=== PATIENT | male | born 1985 | race Two or more races ===

== ENCOUNTER 2023-08-31 16:55 | Observation (INO) ==
--- NOTE | 2023-08-31 18:17 | DR.GENAD ---
HPI Time Seen Time Seen by Provider: 08/31/23 18:17 PCP Primary Care Physician: NONE Complaint/Symptoms Chief Complaint Doctors Comments: Patient c/o nausea,vomiting,epigasric pain x 7 days.Patient has a h/o pancreatitis in the past.Patient states that he had hematemesis and hematochezia occasionally also. Patient denies: fever,chills,back pain,dizziness,lightheadedness. Chief Complaint:: Patient c/o of nausea/vomiting/ epigastric pain that started friday denies any fever/diarrhea. patient last vomitted around 2pm. COVID-19 Coronavirus risk:travel/contact w/high risk person: No Has patient experienced Coronavirus symptoms: No Source History Provided: Patient Mode of Arrival Mode of Arrival: Ambulatory Timing Onset of Chief Complaint: 08/29/23 PMH PMH Past Medical History: Yes Past Medical History: Dyslipidemia Past Surgical History: No Family History History of Family Medical Conditions: No Social History Does patient currently use any type of tobacco product: No Have you used tobacco products in the last 12 months: No Type of Tobacco Use: None Does any household member use tobacco: No Alcohol Use: Occasionally Do you use any recreational Drugs:: No Lives With: Family Lives Where: Home Travel Risk Coronavirus risk:travel/contact w/high risk person: No Has patient experienced Coronavirus symptoms: No Infectious screening In the last 2 months have you had wt loss of >10#?: NO Have you had fever, night sweats or hemotysis?: No Have you traveled outside the country in the last 6 months?: No Isolation: Standard ROS Review of Systems Constitutional: No Symptoms Reported Eyes: No Symptoms Reported ENTM: No Symptoms Reported Respiratoy: No Symptoms Reported Cardiovascular: No Symptoms Reported Gastrointestinal/Abdominal: Abdominal Pain (epigastric,RUQ), Nausea, Vomiting and Food Intolerance Genitourinary: No Symptoms Reported Neurological: No Symptoms Reported Musculoskeletal: No Symptoms Reported Integumentary: No Symptoms Reported Hematologic/Lymphatic: No Symptoms Reported Endocrine: No Symptoms Reported Psychiatric: No Symptoms Reported All Other Systems: Reviewed and Negative PE Vital Signs Vitals: Vital Signs Pulse Rate [Left Brachial] 56 Pulse Rate 62 Respiratory Rate 20 Respiratory Rate 20 Respiratory Rate 20 Blood Pressure [Right Arm] 116/75 Blood Pressure 125/76 O2 Sat by Pulse Oximetry 96 O2 Sat by Pulse Oximetry 97 General Limitations: No Limitations General Appearance: Alert and In No Apparent Distress Head Head Exam: Normal Inspection Eyes Eye exam: Normal Appearance ENT ENT Exam: Normal Exam External Ear Exam: Normal External Inspection TM/Canal Exam: Bilateral: Normal Nose Exam: Normal Nose Exam Mouth Exam: Normal Inspection Throat Exam: Normal Inspection Neck Neck Exam: Normal Inspection Chest Chest Inspection: Normal Inspection Respiratory Respiratory Exam: Normal Lung Sounds Bilat Respiratory Exam: Bilateral: Clear to Auscultation Cardiovascular Cardiovascular Exam: Regular Rate and Normal Rhythm Abdominal Exam Abdominal Exam: Normal Inspection, Soft, Tenderness and Hypoactive Bowel Sounds Abdominal Tenderness: RUQ and Epigastrium Extremities Extremities Exam: Normal Inspection Back Back Exam: Normal Inspection Neurologic Neurological Exam: Alert and Oriented X3 Psychiatric Psychiatric Exam: Normal Affect and Normal Mood Skin Skin Exam: Warm, Dry, Intact and Normal Color MDM Differential Diagnosis Differential Diagnosis: DDx: gastritis,Gerd,PUD COURSE Treatment Treatment: Patient was given zofran 4mg im ,gi cocktail 30ml po.Patient had an episode of emesis and vomited the meds he was given. Iv access was initiated and patient was given: NS iv bolus was given,dicyclomine 10mg im,flagyl 500mg iv,morphine 2mg iv and zofran 4mg iv.Patient's abd/pelvis CT revealed acute pancreatitis. Discussed case with Dr Christianson who will admit patient to his service for further treatment. [facility] Labs Reviewed Laboratory Results Reviewed?: Yes 08/31/23 22:58 08/31/23 22:58 Laboratory: WBC 9.0 X10^3/uL (3.6-10.0) 08/31/23 22:58 RBC 5.29 X10^6/uL (4.7-6.0) 08/31/23 22:58 Hgb 15.7 g/dL (13.5-18.0) 08/31/23 22:58 Hct 45.2 % (42.0-54.0) 08/31/23 22:58 MCV 85.4 fL (80.0-100.0) 08/31/23 22:58 MCH 29.7 pg (27.0-34.0) 08/31/23 22:58 MCHC 34.8 g/dL (33.0-35.0) 08/31/23 22:58 RDW 14.2 % (11.6-16.5) 08/31/23 22:58 Plt Count 418 X10^3/uL (150.0-450.0) 08/31/23 22:58 MPV 7.2 fL (7.4-11.0) L 08/31/23 22:58 Neut % (Auto) 71.9 % (42.0-75.0) 08/31/23 22:58 Lymph % (Auto) 20.1 % (21.0-51.0) L 08/31/23 22:58 [place] % (Auto) 5.8 % (0.0-13.0) 08/31/23 22:58 Eos % (Auto) 1.6 % (0.9-2.9) 08/31/23 22:58 Baso % (Auto) 0.6 % (0.2-1.0) 08/31/23 22:58 Neut # (Auto) 6.4 x10^3/uL (2.2-4.8) H 08/31/23 22:58 Lymph # (Auto) 1.8 X10^3/uL (1.3-2.9) 08/31/23 22:58 [place] # (Auto) 0.5 x10^3/uL (0.3-0.8) 08/31/23 22:58 Eos # (Auto) 0.1 x10^3/uL (0.0-0.2) 08/31/23 22:58 Baso # (Auto) 0.1 X10^3/uL (0.0-0.1) 08/31/23 22:58 Absolute Nucleated RBC 0.2 /100WBC 08/31/23 22:58 Sodium 139 mmol/L (136-145) 08/31/23 22:58 Corrected Sodium 140 mmol/L (136-145) 08/31/23 22:58 Potassium 3.3 mmol/L (3.5-5.1) L 08/31/23 22:58 Chloride 97 mmol/L (98-107) L 08/31/23 22:58 Carbon Dioxide 33.5 mmol/L (21-32) H 08/31/23 22:58 BUN 22 mg/dL (7-18) H 08/31/23 22:58 Creatinine 1.15 mg/dL (0.70-1.30) 08/31/23 22:58 Est GFR (MDRD) Af Amer > 60 (>60) 08/31/23 22:58 Est GFR (MDRD) Non-Af > 60 (>60) 08/31/23 22:58 Glucose 142 mg/dL (65-99) H 08/31/23 22:58 Calcium 9.9 mg/dL (8.5-10.1) 08/31/23 22:58 Corrected Calcium TNP 08/31/23 22:58 Total Bilirubin 0.90 mg/dL (0.2-1.0) 08/31/23 22:58 AST 34 Units/L (15-37) 08/31/23 22:58 ALT 64 Units/L (12-78) 08/31/23 22:58 Alkaline Phosphatase 121 Units/L (46-116) H 08/31/23 22:58 Total Protein 9.8 g/dL (6.4-8.2) H 08/31/23 22:58 Albumin 4.6 g/dL (3.4-5.0) 08/31/23 22:58 Globulin 5.2 g/dL (2.5-4.5) H 08/31/23 22:58 Albumin/Globulin Ratio 0.9 Ratio (1.1-2.1) L 08/31/23 22:58 Amylase 72 Units/L (25-115) 08/31/23 22:58 Lipase 73 Units/L (16-77) 08/31/23 22:58 Specimen Type Clean catch urine 09/01/23 00:38 Urine Color Yellow (YELLOW) 09/01/23 00:38 Urine Appearance Clear (CLEAR) 09/01/23 00:38 Urine pH 8.0 (5.0 - 8.0) 09/01/23 00:38 Ur Specific [place] 1.015 (1.000-1.030) 09/01/23 00:38 Urine Protein Negative (NEGATIVE) 09/01/23 00:38 Urine Glucose (UA) Negative (NEGATIVE) 09/01/23 00:38 Urine Ketones Negative (NEGATIVE) 09/01/23 00:38 Urine Blood Negative (NEGATIVE) 09/01/23 00:38 Urine Nitrite Negative (NEGATIVE) 09/01/23 00:38 Urine Bilirubin Negative (NEGATIVE) 09/01/23 00:38 Urine Urobilinogen Normal (NORMAL) 09/01/23 00:38 Ur Leukocyte Esterase Negative (NEGATIVE) 09/01/23 00:38 Urine Opiates Screen Negative (NEG=<300) 09/01/23 00:38 Urine Methadone Screen Negative (NEG=<300) 09/01/23 00:38 Ur Barbiturates Screen Negative (NEG=<200) 09/01/23 00:38 Ur Phencyclidine Scrn Negative (NEG=<25) 09/01/23 00:38 Ur Amphetamines Screen Negative (NEG=<1000) 09/01/23 00:38 U Benzodiazepines Scrn Negative (NEG=<200) 09/01/23 00:38 Urine Cocaine Screen Negative (NEG=<300) 09/01/23 00:38 U Marijuana (THC) Screen Negative (NEG=<50) 09/01/23 00:38 Ethyl Alcohol mg/dL < 3 mg/dL (0-19.9) 08/31/23 22:58 Opioid Opioid Risk Tool Age (Raciel box if 16-45): Yes History of Preadolescent Sexual Abuse: No Total: 1 Total Score Risk Category: Low Risk Copyright: Huy LOU predicting aberrant behaviors Discharge Plan Diagnosis Discharge Problem: Acute pancreatitis Discharge Plan Patient Disposition: 09 ADMITTED INPATIENT Condition: Stable Prescriptions: New omeprazole 40 mg capsule,delayed release(DR/EC) 40 mg PO BID Qty: 40 0RF ondansetron HCl 4 mg tablet 4 mg PO Q6H Qty: 40 0RF sucralfate 1 gram tablet 1 g PO BID Qty: 60 0RF No Action atorvastatin 40 mg tablet 40 mg PO QPM Health Concerns: Post Hospitalization: new medications and changes needed to prevent readmission or further decline. Pt educated and given instructions on all concerns. Plan of Treatment: Continue with present treatment and follow up plan. Pt is to keep follow up appointment as instructed and take medications as ordered. Orders to Discharge Patient Discharge Orders: Discharge (Routine); Ordered 08/31/23 Ordered By: Gloria Gutierrez Transfer (Routine); Ordered 09/01/23 Ordered By: Gloria Gutierrez Follow ups/Referrals Follow ups/Referrals: NFD,None [Primary Care Provider] - 3 days Instructions Stand Alone Forms: Post Hospital Follow Up Care
[2023-08-31] MEDS: ZOFRAN INJ 4 MG VIAL IM ONE (21:35)
[2023-08-31] MEDS: LEVSIN/MAALOX/LIDOC VISC PO ONE (21:49)
[2023-08-31] MEDS: BENTYL I.M. INJ 10 MG IM ONE (22:38)
[2023-08-31] MEDS: NS 1,000 ML IV 1,000 ML IV ONE (23:02)
[2023-08-31] MEDS: ZOFRAN INJ 4 MG VIAL IVP ONE (23:02)
[2023-08-31 23:06] LABS: BASOPHILS # (AUTO) 0.1 X10^3/uL (0.0-0.1); BASOPHILS % (AUTO) 0.6 % (0.2-1.0); EOSINOPHILS # (AUTO) 0.1 x10^3/uL (0.0-0.2); EOSINOPHILS % (AUTO) 1.6 % (0.9-2.9); HEMATOCRIT 45.2 % (42.0-54.0); HEMOGLOBIN 15.7 g/dL (13.5-18.0); LYMPHOCYTES # (AUTO) 1.8 X10^3/uL (1.3-2.9); LYMPHOCYTES % (AUTO) 20.1 % (21.0-51.0); MEAN CORPUSCULAR HEMOGLOBIN 29.7 pg (27.0-34.0); MEAN CORPUSCULAR HGB CONC 34.8 g/dL (33.0-35.0); MEAN CORPUSCULAR VOLUME 85.4 fL (80.0-100.0); MEAN PLATELET VOLUME 7.2 fL (7.4-11.0); MONOCYTES # (AUTO) 0.5 x10^3/uL (0.3-0.8); MONOCYTES % (AUTO) 5.8 % (0.0-13.0); NEUTROPHILS # (AUTO) 6.4 x10^3/uL (2.2-4.8); NEUTROPHILS % (AUTO) 71.9 % (42.0-75.0); PLATELET COUNT 418 X10^3/uL (150.0-450.0); RED BLOOD COUNT 5.29 X10^6/uL (4.7-6.0); RED CELL DISTRIBUTION WIDTH 14.2 % (11.6-16.5)
[2023-08-31 23:21] LABS: ALANINE AMINOTRANSFERASE 64 Units/L (12-78); ALBUMIN 4.6 g/dL (3.4-5.0); ALKALINE PHOSPHATASE 121 Units/L (46-116); AMYLASE 72 Units/L (25-115); ASPARTATE AMINO TRANSFERASE 34 Units/L (15-37); BLOOD ALCOHOL < 3 mg/dL (0-19.9); BLOOD UREA NITROGEN 22 mg/dL (7-18); CALCIUM 9.9 mg/dL (8.5-10.1); CARBON DIOXIDE 33.5 mmol/L (21-32); CHLORIDE 97 mmol/L (98-107); COR NA(FOR HYPERGLY) 140 mmol/L (136-145); CREATININE 1.15 mg/dL (0.70-1.30); GLUCOSE 142 mg/dL (65-99); LIPASE 73 Units/L (16-77); POTASSIUM 3.3 mmol/L (3.5-5.1); SODIUM 139 mmol/L (136-145); TOTAL PROTEIN 9.8 g/dL (6.4-8.2); eGFR NON BLACK RACES > 60 (>60)
[2023-09-01 00:45] LABS: BILIRUBIN,URINE NEGATIVE (NEGATIVE); BLOOD/HEMOGLOBIN,URINE NEGATIVE (NEGATIVE); GLUCOSE, URINE NEGATIVE (NEGATIVE); KETONES,URINE NEGATIVE (NEGATIVE); LEUKOCYTE ESTERASE ,URINE NEGATIVE (NEGATIVE); NITRITES,URINE NEGATIVE (NEGATIVE); PROTEIN,URINE NEGATIVE (NEGATIVE); UROBILINOGEN,URINE NORMAL (NORMAL)
[2023-09-01 00:51] LABS: APPEARANCE,URINE CLEAR (CLEAR); COLOR,URINE YELLOW (YELLOW)
--- NOTE | 2023-09-01 01:00 | CT ---
EXAM:CT ABDOMEN AND PELVIS WITH CONTRASTHISTORY:abd pain;COMPARISON:NoneTECHNIQUE:Axial images were acquired of the abdomen and pelvis with IV contrast. Sagittal and coronal reformatted images were provided. All images were reviewed in a variety of windows and levels.RADIATION REDUCTION TECHNIQUE: Automated exposure control, adjustment of the mA and/or kV according to patient size, or iterative reconstruction techniques were used.FINDINGS:LOWER THORAX: The visualized lower lung zones are clear. The heart size is within normal limits. There is no evidence of a pericardial effusion.LIVER: No intrahepatic focal lesions are seen. No evidence of intrahepatic or extrahepatic duct dilation.GALLBLADDER: The gallbladder is unremarkable.SPLEEN: The spleen is mildly enlarged measuring 13.9 cm in length.PANCREAS: The head of the pancreas is somewhat heterogeneous with ill-defined margins suggesting peripancreatic fluid/inflammation. The body and tail of the pancreas are unremarkable. There is extension of fluid into the retroperitoneal spaces inferior to the pancreatic head.ADRENAL GLANDS: The adrenal glands enhance homogenously and are unremarkable.: The kidneys enhance homogenously. Their collecting system is of normal caliber.URINARY BLADDER: The urinary bladder is unremarkable. There are no soft tissue masses seen in the urinary bladder.VESSELS: The abdominal aorta is normal in size without evidence of aneurysm or dissection. The celiac artery, superior mesenteric artery, teller renal arteries, and inferior mesenteric artery are patent.GI: The stomach is markedly distended and fluid-filled. There are no inflammatory changes seen in the right lower quadrant to suggest secondary signs of acute appendicitis. Normal appendix right lower quadrant.LYMPHNODES AND MESENTERY: There is no evidence of retroperitoneal lymphadenopathy.BONES: The visualized bones are intact. There are no concerning lytic or blastic lesions identified.IMPRESSION:Head of the pancreas is enlarged and heterogeneous with ill-defined margins suggesting peripancreatic fluid/inflammation. Findings are suggestive of acute pancreatitis. Clinical and laboratory correlation advised.Mild splenomegaly.Markedly distended fluid-filled stomach.THIS IS AN ELECTRONICALLY VERIFIED FINAL REPORT09/01/2023 12:56 AM - Electronically signed by Cain Crowe MD
[2023-09-01] MEDS: ZOFRAN INJ 4 MG VIAL IVP ONE (03:17)
[2023-09-01] MEDS: FLAGYL IV PREMIX 500 MG BAG 500 MG/100 ML BAG IV SCH (03:18)
[2023-09-01] MEDS: MORPHINE SULFATE INJ 2 MG INJ IVP ONE (03:18)
[2023-09-01] MEDS ORDERED: ZOFRAN INJ 4 MG VIAL IVP PRN (05:35)
[2023-09-01] MEDS ORDERED: MORPHINE SULFATE INJ 2 MG INJ IVP PRN (05:35)
[2023-09-01 07:29] LABS: BASOPHILS # (AUTO) 0.1 X10^3/uL (0.0-0.1); BASOPHILS % (AUTO) 1.3 % (0.2-1.0); EOSINOPHILS # (AUTO) 0.1 x10^3/uL (0.0-0.2); EOSINOPHILS % (AUTO) 1.9 % (0.9-2.9); HEMATOCRIT 37.2 % (42.0-54.0); HEMOGLOBIN 12.9 g/dL (13.5-18.0); LYMPHOCYTES # (AUTO) 1.5 X10^3/uL (1.3-2.9); LYMPHOCYTES % (AUTO) 23.8 % (21.0-51.0); MEAN CORPUSCULAR HGB CONC 34.8 g/dL (33.0-35.0); MEAN CORPUSCULAR VOLUME 86.3 fL (80.0-100.0); MONOCYTES # (AUTO) 0.4 x10^3/uL (0.3-0.8); MONOCYTES % (AUTO) 6.9 % (0.0-13.0); NEUTROPHILS # (AUTO) 4.3 x10^3/uL (2.2-4.8); NEUTROPHILS % (AUTO) 66.1 % (42.0-75.0); PLATELET COUNT 306 X10^3/uL (150.0-450.0); RED BLOOD COUNT 4.31 X10^6/uL (4.7-6.0); RED CELL DISTRIBUTION WIDTH 14.5 % (11.6-16.5); WHITE BLOOD COUNT 6.5 X10^3/uL (3.6-10.0)
[2023-09-01 07:46] LABS: ALANINE AMINOTRANSFERASE 55 Units/L (12-78); ALBUMIN 3.6 g/dL (3.4-5.0); ALKALINE PHOSPHATASE 93 Units/L (46-116); ASPARTATE AMINO TRANSFERASE 32 Units/L (15-37); BLOOD UREA NITROGEN 21 mg/dL (7-18); CALCIUM 8.5 mg/dL (8.5-10.1); CHLORIDE 103 mmol/L (98-107); COR NA(FOR HYPERGLY) 138 mmol/L (136-145); CREATININE 1.06 mg/dL (0.70-1.30); GLUCOSE 117 mg/dL (65-99); POTASSIUM 3.7 mmol/L (3.5-5.1); SODIUM 138 mmol/L (136-145); TOTAL PROTEIN 7.8 g/dL (6.4-8.2); eGFR NON BLACK RACES > 60 (>60)
[2023-09-01] MEDS: BENTYL I.M. INJ 10 MG IM ONE (08:39)
[2023-09-01] MEDS: NS 1,000 ML IV 1,000 ML ONE (08:39)
[2023-09-01] MEDS: CONSULT PHARMACY - POTASSIUM & MAGNESIUM XX SCH (08:40)
[2023-09-01] MEDS: ZOFRAN INJ 4 MG VIAL ONE (08:40)
[2023-09-01] MEDS: FLAGYL IV PREMIX 500 MG BAG 500 MG/100 ML BAG IV ONE (08:40)
[2023-09-01] MEDS ORDERED: FLAGYL IV PREMIX 500 MG BAG 500 MG/100 ML BAG IV SCH ×2 (09:00)
[2023-09-01] MEDS: NS 1,000 ML IV 1,000 ML IV SCH (10:08)
[2023-09-01] MEDS: K-DUR TAB 20 MEQ PO SCH (10:08)
[2023-09-01] MEDS: PROTONIX INJ 40 MG VIAL IVP SCH (10:08)
--- NOTE | 2023-09-01 11:21 | DR.H&P ---
H&P History & Physical for Day of: H&P Date: 09/01/23 Chief Complaint Chief Complaint: abdominal pain, N/V History of Present Illness History of Present Illness: Mr Cheng is a 37y/o male with no pertinent PMH presented with worsening abdominal pain, nausea and vomiting that started Friday. He was having worsening symptoms over the weekend and was not able to keep anything down so he came to the ER. Work-up showed anemia, normal WBC and normal renal function. Lipase was normal. CTAP did show acute pancreatitis. He received IV fluids and pain control. He was admitted for further management. He states having pancreatitis in May. Denies any hx of gallstones. He does drink ETOH, reports drinking 12 pack beer over the weekend. He is currently NPO, reports improvement in pain. No N/V since admission. Labs/imaging reviewed -WBC 6.5 Hgb 12.9 K:3.7 Lipase:73 -UA: neg DS: neg -CTAP reviewed Plan: start hydration with NS, continue pain control. Start IV protonix. Continue NPO status for now, order GB US. Start clears for lunch. Replace electrolytes as per protocol. Monitor AM labs/imaging. Past Medical History Past Medical History: Dyslipidemia Social History Does patient currently use any type of tobacco product: No Have you used tobacco products in the last 12 months: No Type of Tobacco Use: None Does any household member use tobacco: No Alcohol Use: Occasionally Medications Home Medications: Home Medications Medication Instructions Recorded Confirmed Type atorvastatin 40 mg tablet 40 mg PO QPM 08/31/23 08/31/23 History Allergies Allergies Allergy/AdvReac Type Severity Reaction Status Date / Time No Known Allergies Allergy Verified 08/31/23 17:07 Labs 09/01/23 07:15 09/01/23 07:15 Labs: Laboratory WBC 6.5 X10^3/uL (3.6-10.0) 09/01/23 07:15 RBC 4.31 X10^6/uL (4.7-6.0) L 09/01/23 07:15 Hgb 12.9 g/dL (13.5-18.0) L D 09/01/23 07:15 Hct 37.2 % (42.0-54.0) L 09/01/23 07:15 MCV 86.3 fL (80.0-100.0) 09/01/23 07:15 MCH 30.0 pg (27.0-34.0) 09/01/23 07:15 MCHC 34.8 g/dL (33.0-35.0) 09/01/23 07:15 RDW 14.5 % (11.6-16.5) 09/01/23 07:15 Plt Count 306 X10^3/uL (150.0-450.0) 09/01/23 07:15 MPV 7.0 fL (7.4-11.0) L 09/01/23 07:15 Neut % (Auto) 66.1 % (42.0-75.0) 09/01/23 07:15 Lymph % (Auto) 23.8 % (21.0-51.0) 09/01/23 07:15 [place] % (Auto) 6.9 % (0.0-13.0) 09/01/23 07:15 Eos % (Auto) 1.9 % (0.9-2.9) 09/01/23 07:15 Baso % (Auto) 1.3 % (0.2-1.0) H 09/01/23 07:15 Neut # (Auto) 4.3 x10^3/uL (2.2-4.8) 09/01/23 07:15 Lymph # (Auto) 1.5 X10^3/uL (1.3-2.9) 09/01/23 07:15 [place] # (Auto) 0.4 x10^3/uL (0.3-0.8) 09/01/23 07:15 Eos # (Auto) 0.1 x10^3/uL (0.0-0.2) 09/01/23 07:15 Baso # (Auto) 0.1 X10^3/uL (0.0-0.1) 09/01/23 07:15 Absolute Nucleated RBC 0.1 /100WBC 09/01/23 07:15 Sodium 138 mmol/L (136-145) 09/01/23 07:15 Corrected Sodium 138 mmol/L (136-145) 09/01/23 07:15 Potassium 3.7 mmol/L (3.5-5.1) 09/01/23 07:15 Chloride 103 mmol/L (98-107) 09/01/23 07:15 Carbon Dioxide 31.0 mmol/L (21-32) 09/01/23 07:15 BUN 21 mg/dL (7-18) H 09/01/23 07:15 Creatinine 1.06 mg/dL (0.70-1.30) 09/01/23 07:15 Est GFR (MDRD) Af Amer > 60 (>60) 09/01/23 07:15 Est GFR (MDRD) Non-Af > 60 (>60) 09/01/23 07:15 Glucose 117 mg/dL (65-99) H 09/01/23 07:15 Calcium 8.5 mg/dL (8.5-10.1) 09/01/23 07:15 Corrected Calcium TNP 09/01/23 07:15 Magnesium 2.4 mg/dL (2.0-2.9) 09/01/23 07:15 Total Bilirubin 0.70 mg/dL (0.2-1.0) 09/01/23 07:15 AST 32 Units/L (15-37) 09/01/23 07:15 ALT 55 Units/L (12-78) 09/01/23 07:15 Alkaline Phosphatase 93 Units/L (46-116) 09/01/23 07:15 Total Protein 7.8 g/dL (6.4-8.2) 09/01/23 07:15 Albumin 3.6 g/dL (3.4-5.0) 09/01/23 07:15 Globulin 4.2 g/dL (2.5-4.5) 09/01/23 07:15 Albumin/Globulin Ratio 0.9 Ratio (1.1-2.1) L 09/01/23 07:15 Amylase 72 Units/L (25-115) 08/31/23 22:58 Lipase 73 Units/L (16-77) 08/31/23 22:58 Specimen Type Clean catch urine 09/01/23 00:38 Urine Color Yellow (YELLOW) 09/01/23 00:38 Urine Appearance Clear (CLEAR) 09/01/23 00:38 Urine pH 8.0 (5.0 - 8.0) 09/01/23 00:38 Ur Specific [place] 1.015 (1.000-1.030) 09/01/23 00:38 Urine Protein Negative (NEGATIVE) 09/01/23 00:38 Urine Glucose (UA) Negative (NEGATIVE) 09/01/23 00:38 Urine Ketones Negative (NEGATIVE) 09/01/23 00:38 Urine Blood Negative (NEGATIVE) 09/01/23 00:38 Urine Nitrite Negative (NEGATIVE) 09/01/23 00:38 Urine Bilirubin Negative (NEGATIVE) 09/01/23 00:38 Urine Urobilinogen Normal (NORMAL) 09/01/23 00:38 Ur Leukocyte Esterase Negative (NEGATIVE) 09/01/23 00:38 Urine Opiates Screen Negative (NEG=<300) 09/01/23 00:38 Urine Methadone Screen Negative (NEG=<300) 09/01/23 00:38 Ur Barbiturates Screen Negative (NEG=<200) 09/01/23 00:38 Ur Phencyclidine Scrn Negative (NEG=<25) 09/01/23 00:38 Ur Amphetamines Screen Negative (NEG=<1000) 09/01/23 00:38 U Benzodiazepines Scrn Negative (NEG=<200) 09/01/23 00:38 Urine Cocaine Screen Negative (NEG=<300) 09/01/23 00:38 U Marijuana (THC) Screen Negative (NEG=<50) 09/01/23 00:38 Ethyl Alcohol mg/dL < 3 mg/dL (0-19.9) 08/31/23 22:58 Review of Systems Constitutional: No Symptoms Reported Eyes: No Symptoms Reported Respiratory: No Symptoms Reported Cardiovascular: No Symptoms Reported Gastrointestinal: Nausea, Vomiting and Abdominal Pain Genitourinary: No Symptoms Reported Musculoskeletal: No Symptoms Reported Skin: No Symptoms Reported Neurological: No Symptoms Reported Physical Exam Vital Signs: Vital Signs Temperature 97.6 F Temperature 97.6 F Pulse Rate [Left Brachial] 53 Pulse Rate [Left Brachial] 60 Pulse Rate [Left Brachial] 56 Respiratory Rate 18 Respiratory Rate 18 Respiratory Rate 18 Respiratory Rate 20 Blood Pressure [Right Arm] 100/55 Blood Pressure [Right Arm] 118/81 Blood Pressure [Right Arm] 116/75 O2 Sat by Pulse Oximetry 96 O2 Sat by Pulse Oximetry 95 O2 Sat by Pulse Oximetry 96 Oriented: Normal Nose: Normal Throat: Normal Respiratory: Clear Throughout Cardiovascular: Normal Auscultation: Bowel Sounds: Normal Tenderness: RUQ, Periumbilical and Mild; negative Guarding or Rigidity Skin: Normal Musculoskeletal: Normal Psychiatric: Normal Mood Description: Calm Affect: Normal Speech Pattern: Clear and Appropriate Assessment/Plan (1) Acute pancreatitis: Qualifiers: Pancreatitis type: unspecified pancreatitis type Acute pancreatitis complication: unspecified Qualified Code(s): K85.90 - Acute pancreatitis without necrosis or infection, unspecified Status: Acute (2) Dehydration: Status: Acute (3) Anemia: Qualifiers: Anemia type: unspecified type Qualified Code(s): D64.9 - Anemia, unspecified Status: Acute Review H&P Reviewed: Yes Patient was examined?: Yes
[2023-09-01 11:38] VITALS: BMI 30.9
--- NOTE | 2023-09-01 13:52 | US ---
EXAM:GALL BLADDERHISTORY:ACUTE PANCREATITIS; UnavailableCOMPARISON:None.TECHNIQUE:[facility] tiple saldaña scale and color flow Doppler images of the right upper quadrant were obtained.FINDINGS:The liver is heterogeneously echogenic/fatty in echotexture and normal in size.No focal intraparenchymal mass or intrahepatic biliary ductal dilatation is observed. The gallbladder does not demonstrate cholelithiasis or layering sludge. The common bile duct is normal in size for age, measuring 5 mm. No pericholecystic fluid or gallbladder wall thickening is observed.The right kidney is normal in size without focal parenchymal mass or nephrolithiasis. The right kidney measurers . No hydronephrosis or perirenal fluid can be observed. The pancreatic head and body are unremarkable. The pancreatic tail is largely obscured by overlying bowel gas.IMPRESSION:Heterogeneously echogenic liver. Otherwise, unremarkable examination of the right upper quadrant.THIS IS AN ELECTRONICALLY VERIFIED FINAL REPORT09/01/2023 1:49 PM - Electronically signed by Lewis De Leon MD
[2023-09-01] MEDS: LIPITOR TAB 40 MG PO SCH (20:35)
[2023-09-02 06:20] LABS: BASOPHILS % (AUTO) 0.4 % (0.2-1.0); EOSINOPHILS # (AUTO) 0.2 x10^3/uL (0.0-0.2); EOSINOPHILS % (AUTO) 3.4 % (0.9-2.9); HEMOGLOBIN 11.7 g/dL (13.5-18.0); LYMPHOCYTES # (AUTO) 1.6 X10^3/uL (1.3-2.9); LYMPHOCYTES % (AUTO) 29.1 % (21.0-51.0); MEAN CORPUSCULAR HEMOGLOBIN 29.7 pg (27.0-34.0); MEAN CORPUSCULAR HGB CONC 34.5 g/dL (33.0-35.0); MEAN CORPUSCULAR VOLUME 86.3 fL (80.0-100.0); MEAN PLATELET VOLUME 7.4 fL (7.4-11.0); MONOCYTES # (AUTO) 0.3 x10^3/uL (0.3-0.8); MONOCYTES % (AUTO) 5.8 % (0.0-13.0); NEUTROPHILS # (AUTO) 3.4 x10^3/uL (2.2-4.8); NEUTROPHILS % (AUTO) 61.3 % (42.0-75.0); PLATELET COUNT 265 X10^3/uL (150.0-450.0); RED BLOOD COUNT 3.94 X10^6/uL (4.7-6.0); RED CELL DISTRIBUTION WIDTH 13.9 % (11.6-16.5); WHITE BLOOD COUNT 5.6 X10^3/uL (3.6-10.0)
[2023-09-02 06:43] LABS: ALANINE AMINOTRANSFERASE 48 Units/L (12-78); ALBUMIN 3.1 g/dL (3.4-5.0); ALKALINE PHOSPHATASE 81 Units/L (46-116); ASPARTATE AMINO TRANSFERASE 31 Units/L (15-37); BLOOD UREA NITROGEN 16 mg/dL (7-18); CALCIUM 7.8 mg/dL (8.5-10.1); CARBON DIOXIDE 26.1 mmol/L (21-32); CHLORIDE 106 mmol/L (98-107); COR CA(FOR HYPOALB) 8.5 mg/dL (8.5-10.1); CREATININE 0.91 mg/dL (0.70-1.30); GLUCOSE 96 mg/dL (65-99); SODIUM 139 mmol/L (136-145); TOTAL PROTEIN 6.8 g/dL (6.4-8.2); eGFR NON BLACK RACES > 60 (>60)
[2023-09-02 10:12] VITALS: RESP 18
[2023-09-02 13:34] VITALS: BP 130/78; PULSE 57; TEMP 97.7; O2SAT 95
== END 2023-09-02 12:40 | disposition home or self-care (01) ==
LOC: ER 16:55 → MED/SURG 16:55
PROVIDERS: ADMIT Family Medicine; ATTEND Family Medicine
DX: E78.5 Hyperlipidemia, unspecified; R11.2 Nausea with vomiting, unspecified; K85.90 Acute pancreatitis without necrosis or infection, unspecified; R16.1 Splenomegaly, not elsewhere classified; R10.84 Generalized abdominal pain; K21.9 Gastro-esophageal reflux disease without esophagitis; D64.89 Other specified anemias; R10.13 Epigastric pain; E86.0 Dehydration